=== PATIENT | female | born 1995 | race Caucasian/White ===

== ENCOUNTER 2022-01-09 08:05 | Outpatient (REF) | payer OTHER, SELFPAY ==
[2022-01-09 16:38] LABS: CT PCR NOT DETECTED (Not Detect.); NG PCR NOT DETECTED (Not Detect.)
== END 2022-01-09 08:06 | disposition home or self-care (01) ==
LOC: HO.LAB 08:05
PROVIDERS: PCP Internal Medicine; Visit Provider Obstetrics & Gynecology
DX: Z01.419 Encounter for gynecological examination (general) (routine) without abnormal findings (principal); N80.9 Endometriosis, unspecified; R87.619 Unspecified abnormal cytological findings in specimens from cervix uteri
CPT/HCPCS: 81003; 81025; 87491; 87591; 88142

== ENCOUNTER 2022-01-28 08:26 | Outpatient (REF) | payer OTHER, SELFPAY ==
--- NOTE | ~2022-01-28 | US_ITS ---
EXAMINATION: US PELVIS COMPLETE US PELVIS ENDOVAGINAL CLINICAL INFORMATION: Endometriosis COMPARISON: None. TECHNIQUE: Transabdominal and transvaginal images of the pelvis were obtained. FINDINGS: UTERUS: Anteverted. Normal size and contour, measuring 7.1 x 3.3 x 4.2 cm (cervix to fundus x AP x transverse). Uniform, homogeneous endometrium measures 0.83 cm in width. Linear echogenic focus representing intrauterine device identified slightly low in the uterus. RIGHT OVARY: Normal size and echogenicity measuring 3.5 x 1.8 x 3.4 cm, volume 10.8 mL. Multiple follicles are noted in the right ovary. LEFT OVARY: Normal size and echogenicity measuring 3.1 x 1.6 x 2.0 cm, volume 5.1 mL. Multiple follicles are noted in the left ovary. FREE FLUID: Trace amount of fluid noted adjacent to the right ovary. US/US pelvic and transvaginal IMPRESSION: 1. Linear echogenic focus representing intrauterine device identified, slightly low in the uterus. 2. Bilateral ovaries demonstrate multiple follicles. 3. Trace amount of fluid noted adjacent to the right ovary.
== END 2022-01-28 08:27 | disposition home or self-care (01) ==
LOC: HO.HMGCX 08:26
PROVIDERS: PCP Internal Medicine; Visit Provider Obstetrics & Gynecology
DX: N80.9 Endometriosis, unspecified (principal)
CPT/HCPCS: 76830; 76856

== ENCOUNTER 2022-02-02 15:21 | Outpatient (REF) | payer OTHER, SELFPAY | END 2022-02-02 15:22 | disposition home or self-care (01) | LOC: HO.LAB 15:21 | PROVIDERS: Visit Provider Obstetrics & Gynecology | DX: N87.0 Mild cervical dysplasia (principal); R87.612 Low grade squamous intraepithelial lesion on cytologic smear of cervix (LGSIL); T83.9XXA Unspecified complication of genitourinary prosthetic device, implant and graft, initial encounter; Z32.02 Encounter for pregnancy test, result negative | CPT/HCPCS: 57454; 81025; 88305; 99212 ==

== ENCOUNTER → 2022-02-19 15:43 | Outpatient (BNVA) | payer OTHER, SELFPAY | PROVIDERS: Visit Provider Obstetrics & Gynecology | DX: Z13.89 Encounter for screening for other disorder (principal) ==

== ENCOUNTER → 2022-03-05 15:21 | Outpatient (BNVA) | payer OTHER, SELFPAY | PROVIDERS: Visit Provider Obstetrics & Gynecology | DX: Z30.433 Encounter for removal and reinsertion of intrauterine contraceptive device (principal); Z32.02 Encounter for pregnancy test, result negative | CPT/HCPCS: 58300; 58301; 81025; J7298 ==